=== PATIENT | female | born 1960 | race Caucasian/White ===

== ENCOUNTER → 2017-07-30 | Outpatient (CLI) | payer BC ==
--- NOTE | 2017-07-30 12:12 | CONS ---
CONSULTATION This is a consultation note for sleep apnea. Primary care physician is Dr. Olmedo. A very pleasant 57-year-old female patient who was suspected to have obstructive sleep apnea. For that reason, the patient was referred to me for further investigation. The patient has been snoring loud and her sleep quality has been gradually getting worse over the years as the patient is waking up from sleep, very tired and sleepy and she would wake up, and she would be feeling drowsy throughout the day. She has gained around 45 pounds over the past 5 years. She has loud snoring, chronic rhinitis, nasal plugging and postnasal drainage related to environmental allergies for which she is on Zyrtec. She is a mouth breather. She occasionally wakes up in the middle of the night gasping for air. No grinding of the teeth. No nocturnal chest pain or heartburn or palpitations. No sleepwalking or sleeptalking. She goes to bed between 10 to 11 p.m. Wakes up at 5:30 a.m. in the morning. She has TV on all night in her bedroom. 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 No history of any motor vehicle accidents because of feeling drowsy or sleepy. The patient has been drinking excessive amount of diet Coke to keep herself awake and she admits to drinking around 6 to 8 cans of it every day. No history of substance abuse. No history of alcoholism. PAST MEDICAL HISTORY: Hypertension, diabetes mellitus, hyperlipidemia and environmental allergies. SURGICAL HISTORY: Surgical history includes tonsillectomy and adenoidectomy and breast biopsy. DRUG ALLERGIES: Drug allergies are PENICILLIN. She has also seasonal allergies to POLLEN, GRASS, ANIMAL DANDER and VARIOUS TREES. SOCIAL HISTORY: Nonsmoker. No history of alcoholism. No history of IV drugs. Drinks 6 to 8 cans of diet Coke every day. FAMILY HISTORY: Negative for sleep apnea. REVIEW OF SYSTEMS: Twelve-point review of system was done. She has excessive fatigue and sleepiness. No insomnia. No nocturia. No anxiety or panic attacks. No palpitations. No sleepwalking or sleeptalking. No sexual dysfunction. No depression. No headaches. No seizure activity. No altered mentation. No falls. No trauma. No dysuria, frequency or urgency. No skin rashes, ulcers, wounds or cellulitis. No arthritis. BP is 111/66, pulse is 70, respirations 16, temperature 98.0, saturations 93% on room air. Weight is 268. Height is 5 feet 5 inches, BMI is 43.9. Neck size 16 inches. GENERAL APPEARANCE: Obese, calm, comfortable. Head is atraumatic, normocephalic. NECK: Short supple. Mallampati class 2 to 3. No goiter or neck masses. Slight micrognathia. Neck size is 16 inches. LUNGS: Diminished breath sounds bilaterally otherwise clear. HEART: Sounds regular rate and rhythm. Normal S1, S2. No S3, S4. No murmurs. ABDOMEN: Soft, nontender. No organomegaly. EXTREMITIES: No edema. No cyanosis or clubbing. Skin is negative for wounds, ulcers or cellulitis. SKELETAL EXAM: Negative for any arthritis or joint deformities or swelling. NEURO: Alert and oriented x3. There is no focal neurological deficits. PSYCH: Negative for anxiety or depression. IMPRESSION: 1. Obstructive sleep apnea, strongly suspected on clinical grounds. Anatomically, the patient is obese and she has a BMI of 43.9 with significant crowding of posterior pharynx making the possibility of obstructive sleep apnea very likely. 2. Obesity with a BMI of 43.9 with interval weight gain in the order of 50 pounds. 3. Daytime drowsiness and sleepiness. 4. Diabetes mellitus. 5. Hypertension. 6. Hyperlipidemia. 7. Environmental allergies with chronic symptoms of rhinitis. PLAN: 1. Encourage weight loss. 2. Cut down the caffeinated beverages. 3. Issues related to sleep hygiene measures were discussed. 4. Likelihood of sleep apnea is high, we will proceed with a screening polysomnogram and decide on treatment accordingly. MMODL / IJN: [id number] /
== END | disposition home or self-care (01) ==
LOC: SLEEP 10:41
PROVIDERS: ATTEND Internal Medicine Critical Care Medicine
DX: G47.33 Obstructive sleep apnea (adult) (pediatric) (principal); G47.61 Periodic limb movement disorder; E11.9 Type 2 diabetes mellitus without complications; I10 Essential (primary) hypertension; E78.5 Hyperlipidemia, unspecified; E66.9 Obesity, unspecified; Z68.41 Body mass index [BMI] 40.0-44.9, adult; Z91.09 Other allergy status, other than to drugs and biological substances; Z88.0 Allergy status to penicillin
CPT/HCPCS: 99211

== ENCOUNTER → 2017-12-24 | Outpatient (CLI) | payer BC ==
--- NOTE | 2017-12-24 18:08 | PN ---
PROGRESS NOTE Eulalia is 57, diagnosed having severe obstructive sleep apnea with an AHI of 72, and currently she is on CPAP pressure of 10 cm of water utilizing a Simplus full-face mask. The patient was expecting much stronger improvement in terms of her chronic tiredness and sleepiness. She has improved; however, her recovery is not absolutely complete. She is willing to continue the treatment, knowing that she is benefitting from the treatment. Her compliance data shows that the patient has been utilizing her CPAP very effectively, on average 5.5 hours per night. CPAP use for more than 4 hours is 28/30. The leak factor is 80 L/minute and the patient's AHI is down to 1.8, indicating that the treatment has been extremely successful. The patient has lost around 5 pounds since her last evaluation. She is trying to lose weight. No other new complaints otherwise for now. REVIEW OF SYSTEMS: Twelve-point review of systems was done. Positive findings are all mentioned above in the history of present illness. PHYSICAL EXAMINATION: BP is 136/69, pulse 63, respirations 17 weight 263, temperature 97.7. GENERAL APPEARANCE: Calm, comfortable. Head is atraumatic, normocephalic. NECK: Supple. Mallampati class IV. There is no goiter neck mass. LUNGS: Clear to auscultation. Heart sounds are regular rate and rhythm. Normal S1, S2. No S3, S4. No murmurs. ABDOMEN: Soft, nontender. No organomegaly. EXTREMITIES: No edema. No cyanosis or clubbing. NEUROLOGIC: Alert and oriented x3. No focal neurological deficits. PSYCHIATRIC: Negative for anxiety or depression. IMPRESSION: 1. Severe symptomatic obstructive sleep apnea with an AHI of 72.5. The patient is benefitting and she is very compliant. 2. Sleep fragmentation, improved with CPAP therapy. 3. Chronic hypersomnia. 4. Morbid obesity with a body mass index of above 43. 5. Diabetes. 6. Hypertension. 7. Hyperlipidemia. 8. Chronic allergic rhinitis. PLAN: 1. Continue CPAP at the same level of pressure. 2. The patient's treatment is effective and the patient is compliant. 3. No need for any adjustments. We will consider the addition of Provigil if she continues to have some residual hypersomnia during the day. For the most part, her treatment is very effective. I will see her back in a year's time in followup. MMODL / IJN: [id number] /
== END ==
LOC: SLEEP 16:30
PROVIDERS: ATTEND Internal Medicine Critical Care Medicine
DX: G47.33 Obstructive sleep apnea (adult) (pediatric) (principal); E66.01 Morbid (severe) obesity due to excess calories; E11.9 Type 2 diabetes mellitus without complications; I10 Essential (primary) hypertension; E78.5 Hyperlipidemia, unspecified; J30.9 Allergic rhinitis, unspecified; Z68.41 Body mass index [BMI] 40.0-44.9, adult; Z99.89 Dependence on other enabling machines and devices